=== PATIENT | female | born 1970 | race Caucasian/White ===

== ENCOUNTER 2016-08-06 03:58 | Emergency (ER) | payer MEDICAID, OTHER ==
[~2016-08-06] VITALS: Ht 165.1 cm; Wt 60.0 kg
[~2016-08-06 03:58] MED LIST: DONE1TAB90 PO; HYDR-3516 PO; LISI-515 PO
[2016-08-06 03:59] VITALS: BP 185/111; PULSE 115; RESP 15; TEMP 97.9; O2SAT 98
--- NOTE | 2016-08-06 04:46 | PD ---
HPI Chief Complaint: Injury Time Seen by Provider: 04:44 Travel History International Travel<30 days: No Contact w/Intl Traveler<30days: No Traveled to known affect area: No History of Present Illness HPI 46-year-old white female presents to emergency Department with complaints of right ankle pain after inversion injury this evening sometime around 1:00. She states that she was walking outside and twisted her right ankle. She states the pain is moderate but more severe with weightbearing. No numbness or tingling. No audible pop. PFSH Past Medical History Cardiovascular Problems: Yes (HTN, MVP) Dementia: Yes Diminished Hearing: No Hypertension: Yes Tetanus Vaccination: < 5 Years Past Surgical History Narrative Surgical Right ankle fracture with ORIF Oral Surgery: Yes (FOR TMJ ) Social History Alcohol Use: Yes (X1 PER MONTH/2 DRINKS) Tobacco Use: Yes (/2 PPD) Substance Use: No Allergies-Medications (Allergen,Severity, Reaction): Coded Allergies: Aspirin (Verified Allergy, Severe, Rash, SOB, 08/06/16) Onion (Verified Allergy, Severe, SEVERE SWELLING, 08/06/16) Adhesives (Verified Allergy, Intermediate, RASH, BLISTERS, 08/06/16) Darvocet-N 100 (Verified Allergy, Intermediate, VOMITING, SOB, 08/06/16) Reported Meds & Prescriptions Reported Meds & Active Scripts Active Lisinopril 20 Mg Tab 20 Mg PO DAILY Reported Donepezil Hydrochloride 5 Mg Tab 5 Mg PO DAILY Hydrocodone-Acetaminophen 5-325 mg Tab 1 Tab PO Q4H PRN Review of Systems Except as stated in HPI: all other systems reviewed are Neg Physical Exam Narrative GENERAL: This is a well-nourished, well-developed patient, in no apparent distress. SKIN: No rashes, ecchymoses or lesions. Warm and dry. HEAD: Atraumatic. Normocephalic. EYES: PERRL, EOMI, no discharge or injection. No scleral icterus. EARS: Clear NOSE: Nasal turbinates appear normal. THROAT: Mucosa pink and moist. Airway patent. NECK: Trachea midline. supple, moves head freely. LUNGS: Clear to auscultation. CV: Regular in rhythm. ABDOMEN: Soft nontender. EXT: No clubbing cyanosis or edema. Examination of the right ankle reveals pain over the lateral malleolus as well as the injured talofibular ligament. No pain on the medial malleolus. No pain in the heel or Achilles. No forefoot pain. Skin is intact. Intact sensation and good dorsalis pedis pulse. Data Data Last Documented VS Vital Signs Date Time Temp Pulse Resp B/P Pulse Ox O2 Delivery O2 Flow Rate FiO2 08/06/16 03:59 97.9 115 15 185/111 98 Room Air Orders Ankle, Complete ([id number]) (08/06/16 04:43) Ice/Cold Pack (08/06/16 04:43) Crutches (08/06/16 04:43) Splint Or Brace Apply/Monitor (08/06/16 05:37) Tramadol (Ultram) (08/06/16 05:45) MDM Medical Decision Making Medical Screen Exam Complete: Yes Emergency Medical Condition: Yes Medical Record Reviewed: Yes Interpretation(s) Last 24 hours Impressions Ankle X-Ray 08/06/16 0443 Signed Impressions: Service Date/Time: Saturday, August 06, 2016 05:04 - CONCLUSION: No acute right ankle abnormality is identified. There has been prior fusion across the talocalcaneal joint with screw present. John Jay MD Differential Diagnosis MDM: High Differential diagnoses: Fracture, sprain, strain, dislocation, contusion, neurovascular injury Narrative Course X-ray is negative for bony injury. Patient given [place] wrap and crutches. Ultram 100 mg by mouth. This right ankle sprain Diagnosis Primary Impression: Right ankle sprain Qualified Code: S93.421A - Sprain of deltoid ligament of right ankle, initial encounter Patient Instructions: General Instructions Additional Instructions: Rest. Elevation. Ice packs for the next 3 days. [place] wrap and crutches. No weight-bearing and then progress to weight-bearing as tolerated. Medications as directed Follow-up with an orthopedist or your doctor in one week. Return to the ER if any problems Med/Other Pt SpecificInfo: Prescription(s) given Scripts Tramadol (Ultram)50 Mg [id number] Mg PO Q6H PRN (PAIN) #20 TAB Prov:Harjinder Kapoor MD 08/06/16 Disposition: 01 DISCHARGE HOME Condition: Stable Randal Davalos Aug 06, 2016 04:46
--- NOTE | 2016-08-06 05:30 | RADRPT ---
EXAM DATE/TIME: 08/06/2016 05:04 [facility] COMPARISON: No previous studies available for comparison. INDICATIONS : Right ankle pain. MEDICAL HISTORY : None. SURGICAL HISTORY : Right foot surgery. ENCOUNTER: Initial ACUITY: 1 day PAIN SCORE: 4/10 LOCATION: Right ankle. FINDINGS: 3 views of the right ankle demonstrate no acute fracture or dislocation. There is a partially threade d cannulated screw traversing the talocalcaneal joint and there is some degree of fusion across this joint. The bones are mildly undermineralized. Ankle mortise is intact. No soft tissue abnormality or radiopaque foreign body is visualized. CONCLUSION: No acute right ankle abnormality is identified. There has been prior fusion across the talocalcaneal joint with screw present. John Jay MD on August 06, 2016 at 5:27 Board Certified Radiologist. This report was verified electronically.
[2016-08-06] MEDS ORDERED: ULTR50TA5 PO (05:43)
[2016-08-06] MEDS ORDERED: traMADol HCL 50 MG TAB PO ONE (05:45)
[2016-08-25] MEDS ORDERED: HYDR12.57 PO (20:15)
== END 2016-08-06 05:57 | disposition home or self-care (01) ==
LOC: NETRI 03:58
DX: S93.401A Sprain of unspecified ligament of right ankle, initial encounter (principal); I10 Essential (primary) hypertension; F17.210 Nicotine dependence, cigarettes, uncomplicated; X50.9XXA Other and unspecified overexertion or strenuous movements or postures, initial encounter; Y93.9 Activity, unspecified; Y92.89 Other specified places as the place of occurrence of the external cause; Y99.9 Unspecified external cause status
CPT/HCPCS: 73610; 99283; E0113